=== PATIENT | female | born 1970 | race Caucasian/White ===

== ENCOUNTER 2019-01-20 12:02 | Emergency (ER) | payer SELFPAY | END 2019-01-20 13:20 | disposition home or self-care (01) | LOC: NAV ERS 12:02 | DX: I10 Essential (primary) hypertension (principal); F41.9 Anxiety disorder, unspecified; F20.9 Schizophrenia, unspecified; E78.5 Hyperlipidemia, unspecified; E78.00 Pure hypercholesterolemia, unspecified; F31.9 Bipolar disorder, unspecified; F17.210 Nicotine dependence, cigarettes, uncomplicated | CPT/HCPCS: 99281 ==